=== PATIENT | male | born 1945 | race Caucasian/White ===

== ENCOUNTER 2016-09-25 18:06 | Inpatient (IN) | payer OTHER, MEDICARE ==
[2016-09-25] VITALS (12 sets, daily range): BP systolic 53–118; BP diastolic 33–82; PULSE 77–98; RESP 16–18; TEMP 97.8–98.2; O2SAT 98–100
[~2016-09-25] VITALS: Ht 182.9 cm; Wt 69.6 kg
[2016-09-25 18:35] LABS: AUTOMATED NEUTROPHIL # 4.6 TH/MM3 (1.8-7.7); BASOPHIL % 0.5 % (0.0-2.0); EOSINOPHIL # 0.1 TH/MM3 (0-0.4); EOSINOPHIL % 1.2 % (0.0-4.0); HEMATOCRIT 30.2 % (39.0-51.0); HEMO FLAGS DIFF FINAL; LYMPH % 14.9 % (9.0-44.0); LYMPHOCYTE # 0.9 TH/MM3 (1.0-4.8); MEAN CELL VOLUME 89.6 FL (80.0-100.0); MEAN CORPUSCULAR HGB CONC 33.5 % (32.0-36.0); NEUT % 77.4 % (16.0-70.0); PLATELET COUNT 165 TH/MM3 (150-450); RED BLOOD COUNT 3.37 MIL/MM3 (4.50-5.90)
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
[2016-09-25 18:44] LABS: APTT (PATIENT) 25.4 SEC (24.3-30.1); INTERNATIONAL NORMALIZED RATIO 1.1 RATIO; PROTHROMBIN TIME - PATIENT 12.2 SEC (9.8-11.6)
[2016-09-25 18:45] LABS: I-STAT POTASSIUM 4.2 MMOL/L (3.5-4.9)
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
[2016-09-25] MEDS ORDERED: IOHEXOL 350 MG/ML 10 ML VIAL (for RAD DIAG) IV ONE (18:46)
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
[2016-09-25] MEDS ORDERED: LIDOCAINE HCL 1% 30 ML VIAL INFIL ONE (20:15)
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
[2016-09-25] MEDS ORDERED: ONDANSETRON HCL 4 MG/2 ML VIAL IV PRN (20:30)
[2016-09-25] MEDS ORDERED: ACETAMINOPHEN/HYDROcodone 325 MG/5 MG TAB PO PRN (20:30)
[2016-09-25] MEDS ORDERED: MORPHINE SULFATE 4 MG/ML INJ IV PRN (20:30)
[2016-09-25] MEDS ORDERED: ENALAPRILAT 1.25 MG/ML VIAL IV PRN (20:30)
[2016-09-25] MEDS ORDERED: SODIUM CHLORIDE 0.9% FLUSH 10 ML FLUSH IV FLUSH PRN (20:30)
[2016-09-25] MEDS ORDERED: LIDOCAINE HCL 1% PF 30 ML VIAL ONE (20:32)
[2016-09-25] MEDS: ceFAZolin 2 GM PREMIX 50 ML IV SCH (21:00)
[2016-09-25] MEDS ORDERED: TOPIRAMATE 25 MG TAB PO SCH (21:00)
[2016-09-25] MEDS ORDERED: POLYETHYLENE GLYCOL 17 GM PKG PO SCH (21:00)
[2016-09-25] MEDS ORDERED: NALOXONE HCL 0.4 MG/ML AMP ONE (21:04)
[2016-09-25] MEDS: SODIUM CHLOR 0.9% 1000 ML INJ 1,000 ML IV SCH (21:30)
[2016-09-25 21:41] LABS: CREATINE KINASE 159 U/L (39-308)
[2016-09-25 21:53] LABS: CKMB 1.9 NG/ML (0.5-3.6)
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
[2016-09-25] MEDS: PANTOPRAZOLE SODIUM 40 MG VIAL IVP SCH (22:49)
[2016-09-25 23:07] LABS: APTT (PATIENT) 20.3 SEC (24.3-30.1)
[2016-09-26] VITALS (9 sets, daily range): BP systolic 101–125; BP diastolic 60–70; PULSE 68–80; RESP 14–24; TEMP 98.1–99.6; O2SAT 95–100
[2016-09-26] MEDS: ceFAZolin 2 GM PREMIX 50 ML IV SCH ×3 (01:45→22:30)
[2016-09-26] MEDS ORDERED: MULT1TAB46 (01:51)
[2016-09-26] MEDS ORDERED: ASPI81CH CHEW (01:51)
[2016-09-26] MEDS ORDERED: LISI10TA3 PO (01:51)
[2016-09-26] MEDS ORDERED: SAWCAP2 PO (01:51)
[2016-09-26 05:50] LABS: AUTOMATED NEUTROPHIL # 5.6 TH/MM3 (1.8-7.7); HEMATOCRIT 28.3 % (39.0-51.0); HEMO FLAGS DIFF FINAL; LYMPH % 7.2 % (9.0-44.0); LYMPHOCYTE # 0.5 TH/MM3 (1.0-4.8); MEAN CELL VOLUME 86.9 FL (80.0-100.0); MEAN CORPUSCULAR HEMOGLOBIN 30.3 PG (27.0-34.0); MEAN CORPUSCULAR HGB CONC 34.9 % (32.0-36.0); MONO % 8.2 % (0.0-8.0); NEUT % 84.6 % (16.0-70.0); PLATELET COUNT 124 TH/MM3 (150-450); RED BLOOD COUNT 3.26 MIL/MM3 (4.50-5.90); WHITE BLOOD COUNT 6.6 TH/MM3 (4.0-11.0)
[2016-09-26 06:18] LABS: BICARBONATE 24.1 MEQ/L (21.0-32.0); CALCIUM-PROTEIN CORRECTED 8.4 MG/DL (8.5-10.1); POTASSIUM 4.7 MEQ/L (3.5-5.1); TOTAL BILIRUBIN ADULT 0.6 MG/DL (0.2-1.0)
[2016-09-26] MEDS: SODIUM CHLOR 0.9% 1000 ML INJ 1,000 ML IV SCH ×2 (07:00→17:00)
[2016-09-26] MEDS ORDERED: LIDOCAINE HCL 5% PATCH T-DERMAL ONE (07:15)
[2016-09-26] MEDS: METHOCARBAMOL 500 MG TAB PO SCH ×3 (07:56→22:35)
[2016-09-26] MEDS: DOCUSATE SODIUM 100 MG CAP PO SCH ×2 (07:56→22:30)
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
[2016-09-26] MEDS: POVIDONE IODINE 10% SOLN 118 ML BOTTLE TOP SCH (21:00)
--- NOTE | 2016-09-26 21:20 | EKG ---
Date Performed: 09/25/2016 Time Performed: 21:58:26 PTAGE: 89 years EKG: Sinus rhythm NORMAL ECG NO PREVIOUS TRACING DOCTOR: Stewart Munroe Interpretating Date/Time 09/26/2016 21:18:16
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
[2016-09-26] MEDS: PANTOPRAZOLE SODIUM 40 MG VIAL IVP SCH (22:29)
[2016-09-26] MEDS: MAGNESIUM HYDROXIDE SUSP 30 ML CUP PO SCH (22:30)
[2016-09-26] MEDS: ACETAMINOPHEN/HYDROcodone 325 MG/5 MG TAB PO PRN (22:35)
[2016-09-27] VITALS: BP 101/67; PULSE 72; RESP 18; TEMP 97.7; O2SAT 96
[2016-09-27] MEDS: SODIUM CHLOR 0.9% 1000 ML INJ 1,000 ML IV SCH (03:00)
[2016-09-27] MEDS: ceFAZolin 2 GM PREMIX 50 ML IV SCH ×3 (05:57→20:33)
--- NOTE | 2016-09-27 06:37 | RADRPT ---
EXAM DATE/TIME: 09/27/2016 06:00 [place] COMPARISON: CHEST SINGLE AP, September 25, 2016, 21:46. INDICATIONS : Post trauma. MEDICAL HISTORY : Unobtainable. SURGICAL HISTORY : Unobtainable. ENCOUNTER: Subsequent ACUITY: 3 days PAIN SCORE: Non-responsive. LOCATION: Bilateral chest FINDINGS: Right central line in superior vena cava. Left basilar airspace disease slightly increased from September 08 8. Distal left clavicle fracture and multiple left rib fractures present. Right lung remains clear. N o significant effusion. No pneumothorax identified. CONCLUSION: 1. Left basilar airspace disease slightly increased from September 25. Right central line in superior vena cava. Ayad Altman MD on September 27, 2016 at 6:33 Board Certified Radiologist. This report was verified electronically.
[2016-09-27 06:49] LABS: AUTOMATED NEUTROPHIL # 3.7 TH/MM3 (1.8-7.7); BASOPHIL % 0.2 % (0.0-2.0); EOSINOPHIL % 0.8 % (0.0-4.0); HEMATOCRIT 25.2 % (39.0-51.0); HEMO FLAGS DIFF FINAL; LYMPH % 13.2 % (9.0-44.0); LYMPHOCYTE # 0.6 TH/MM3 (1.0-4.8); MEAN CELL VOLUME 88.3 FL (80.0-100.0); MEAN CORPUSCULAR HEMOGLOBIN 29.5 PG (27.0-34.0); MEAN CORPUSCULAR HGB CONC 33.5 % (32.0-36.0); MONO % 10.3 % (0.0-8.0); NEUT % 75.5 % (16.0-70.0); PLATELET COUNT 110 TH/MM3 (150-450); RED BLOOD COUNT 2.86 MIL/MM3 (4.50-5.90); RED CELL DISTRIBUTION WIDTH 13.6 % (11.6-17.2); WHITE BLOOD COUNT 4.9 TH/MM3 (4.0-11.0)
[2016-09-27 07:14] LABS: ALT (GPT) 21 U/L (12-78); ANION GAP 8 MEQ/L (5-15); AST (GOT) 40 U/L (15-37); BICARBONATE 24.8 MEQ/L (21.0-32.0); BLOOD UREA NITROGEN 10 MG/DL (7-18); CHLORIDE 108 MEQ/L (98-107); GLOMERULAR FILTRATION RATE 95 ML/MIN (>89); SODIUM (NA) 141 MEQ/L (136-145)
[2016-09-27 07:16] LABS: ALKALINE PHOSPHATASE 28 U/L (45-117); TOTAL BILIRUBIN ADULT 0.5 MG/DL (0.2-1.0)
[2016-09-27 08:00] VITALS: BP 142/84; PULSE 73; RESP 14; TEMP 97.9; O2SAT 97
[2016-09-27] MEDS: DOCUSATE SODIUM 100 MG CAP PO SCH ×2 (08:47→20:33)
[2016-09-27] MEDS: METHOCARBAMOL 500 MG TAB PO SCH ×2 (08:47→17:12)
[2016-09-27] MEDS: POVIDONE IODINE 10% SOLN 118 ML BOTTLE TOP SCH ×2 (08:47→20:34)
[2016-09-27] MEDS: LACTULOSE SYRUP 20 GM/30 ML CUP PO SCH (08:49)
[2016-09-27] MEDS: ACETAMINOPHEN/HYDROcodone 325 MG/5 MG TAB PO PRN (09:01)
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
[2016-09-27 12:00] VITALS: BP 125/77; PULSE 71; RESP 17; TEMP 96.2; O2SAT 97
[2016-09-27 16:00] VITALS: BP 124/73; PULSE 73; RESP 18; TEMP 97; O2SAT 96
[2016-09-27 20:00] VITALS: BP 171/80; PULSE 79; RESP 20; TEMP 99; O2SAT 95
[2016-09-27] MEDS: MAGNESIUM HYDROXIDE SUSP 30 ML CUP PO SCH (20:33)
[2016-09-27 22:00] VITALS: BP 129/72; PULSE 78; RESP 20; TEMP 98.6; O2SAT 98
[2016-09-28] VITALS: BP 126/77; PULSE 78; RESP 20; TEMP 98.6; O2SAT 98
[2016-09-28] MEDS: METHOCARBAMOL 500 MG TAB PO SCH ×3 (01:00→15:31)
[2016-09-28] MEDS: ceFAZolin 2 GM PREMIX 50 ML IV SCH ×3 (06:11→21:42)
[2016-09-28] MEDS: DOCUSATE SODIUM 100 MG CAP PO SCH ×2 (07:41→21:42)
[2016-09-28] MEDS: POVIDONE IODINE 10% SOLN 118 ML BOTTLE TOP SCH ×2 (07:41→21:00)
[2016-09-28] MEDS: LACTULOSE SYRUP 20 GM/30 ML CUP PO SCH (07:41)
[2016-09-28] MEDS ORDERED: BUPIVACAINE/EPINEPHRINE 0.25% 50 ML VIAL ONE (07:52)
[2016-09-28 08:00] VITALS: BP 139/83; PULSE 81; RESP 18; TEMP 97.9; O2SAT 96
[2016-09-28] MEDS ORDERED: POVIDONE IODINE 10% OINT 30 GM TUBE ONE (09:18)
[2016-09-28] MEDS ORDERED: DO NOT ADM ANY ANTICOAGULANT DRUGS PRN (10:01)
[2016-09-28] MEDS ORDERED: fentaNYL CITRATE 250 MCG/5 ML AMP ONE (10:06)
--- NOTE | 2016-09-28 10:11 | HHI.PR ---
Immediate Post Op Note Procedure Date: September 28, 2016 Pre Op Diagnosis: (1) Scalp avulsion Post Op Diagnosis: (1) Scalp avulsion Surgeon: Grecia Rivera Wood Carver(s): None. Procedure: 1. Excisional debridement of scalp wound including skin and subcutaneous tissue and muscular layer. 2. Closure of 35 cm scalp wound with rotation flap. Estimated blood loss: 30 ml Anesthesia: General Drains: Maryjo Patient to: PACU Patient Condition: Good Date/Time of Procedure: SEE SURGICAL CARE RECORD Grecia Rivera MD September 28, 2016 10:11
[2016-09-28 12:00] VITALS: BP 115/67; PULSE 75; RESP 16; TEMP 97.5; O2SAT 94
[2016-09-28] MEDS ORDERED: BISACODYL EC 5 MG TABEC PO ONE (12:00)
[2016-09-28] MEDS ORDERED: ONDANSETRON HCL 4 MG/2 ML VIAL IV PUSH ONE (12:00)
[2016-09-28] MEDS ORDERED: PROPOFOL 200 MG/20 ML AMP IV ONE (12:00)
[2016-09-28] MEDS ORDERED: LACTATED RINGER'S 1000 ML INJ 1,000 ML IV ONE (12:00)
[2016-09-28] MEDS ORDERED: PHENYLEPH/NS 1000 MCG/10 ML SYR IV ONE (12:00)
[2016-09-28] MEDS ORDERED: BISACODYL 10 MG SUPP RECTAL ONE (12:00)
[2016-09-28] MEDS ORDERED: ePHEDrine/NS 25 MG/5 ML SYR IV ONE (12:00)
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
[2016-09-28] MEDS ORDERED: MORPHINE SULFATE 4 MG/ML INJ IV PRN (13:45)
[2016-09-28] MEDS: REMOVE OLD LIDOCAINE PATCH T-DERMAL SCH (14:00)
[2016-09-28] MEDS: LIDOCAINE HCL 5% PATCH T-DERMAL SCH (15:31)
[2016-09-28 16:00] VITALS: BP 124/91; PULSE 86; RESP 18; TEMP 96.3; O2SAT 92
[2016-09-28 20:00] VITALS: BP 134/92; PULSE 99; RESP 20; TEMP 99.3; O2SAT 97
[2016-09-28] MEDS: FAMOTIDINE 20 MG TAB PO SCH (21:42)
[2016-09-28] MEDS: MAGNESIUM HYDROXIDE SUSP 30 ML CUP PO SCH (21:42)
[2016-09-29] VITALS: BP 149/80; PULSE 85; RESP 20; TEMP 98.7; O2SAT 95
[2016-09-29] MEDS: METHOCARBAMOL 500 MG TAB PO SCH ×3 (00:06→16:00)
[2016-09-29] MEDS: ceFAZolin 2 GM PREMIX 50 ML IV SCH ×3 (04:09→21:26)
[2016-09-29 06:09] LABS: AUTOMATED NEUTROPHIL # 2.8 TH/MM3 (1.8-7.7); BASOPHIL % 0.4 % (0.0-2.0); EOSINOPHIL # 0.1 TH/MM3 (0-0.4); EOSINOPHIL % 2.1 % (0.0-4.0); HEMATOCRIT 23.2 % (39.0-51.0); HEMO FLAGS DIFF FINAL; LYMPH % 15.2 % (9.0-44.0); LYMPHOCYTE # 0.6 TH/MM3 (1.0-4.8); MEAN CORPUSCULAR HEMOGLOBIN 30.1 PG (27.0-34.0); MEAN CORPUSCULAR HGB CONC 34.2 % (32.0-36.0); MONO % 9.5 % (0.0-8.0); NEUT % 72.8 % (16.0-70.0); PLATELET COUNT 113 TH/MM3 (150-450); RED BLOOD COUNT 2.64 MIL/MM3 (4.50-5.90); RED CELL DISTRIBUTION WIDTH 13.3 % (11.6-17.2); WHITE BLOOD COUNT 3.9 TH/MM3 (4.0-11.0)
[2016-09-29 06:41] LABS: ALT (GPT) 16 U/L (12-78); ANION GAP 8 MEQ/L (5-15); AST (GOT) 39 U/L (15-37); BICARBONATE 27.5 MEQ/L (21.0-32.0); BLOOD UREA NITROGEN 10 MG/DL (7-18); CHLORIDE 106 MEQ/L (98-107); GLOMERULAR FILTRATION RATE 111 ML/MIN (>89); POTASSIUM 3.9 MEQ/L (3.5-5.1); SODIUM (NA) 141 MEQ/L (136-145)
[2016-09-29 06:43] LABS: ALKALINE PHOSPHATASE 29 U/L (45-117); TOTAL BILIRUBIN ADULT 0.7 MG/DL (0.2-1.0)
[2016-09-29 08:00] VITALS: BP 138/84; PULSE 84; RESP 16; TEMP 97.4; O2SAT 96
[2016-09-29] MEDS ORDERED: BISACODYL EC 5 MG TABEC PO ONE (08:00)
[2016-09-29] MEDS ORDERED: BISACODYL 10 MG SUPP RECTAL ONE (08:00)
[2016-09-29 08:09] VITALS: O2SAT 95
[2016-09-29] MEDS: LACTULOSE SYRUP 20 GM/30 ML CUP PO SCH (08:18)
[2016-09-29] MEDS: DOCUSATE SODIUM 100 MG CAP PO SCH ×2 (08:18→21:25)
[2016-09-29] MEDS: LIDOCAINE HCL 5% PATCH T-DERMAL SCH (08:18)
[2016-09-29] MEDS: FAMOTIDINE 20 MG TAB PO SCH ×2 (08:18→21:25)
[2016-09-29] MEDS: POVIDONE IODINE 10% SOLN 118 ML BOTTLE TOP SCH ×2 (08:24→21:00)
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
[2016-09-29 12:00] VITALS: BP 135/82; PULSE 81; RESP 17; TEMP 96.8; O2SAT 99
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
[2016-09-29] MEDS: REMOVE OLD LIDOCAINE PATCH T-DERMAL SCH (13:48)
[2016-09-29 16:00] VITALS: BP 124/81; PULSE 72; RESP 17; TEMP 97.9; O2SAT 99
[2016-09-29 20:00] VITALS: BP 129/89; PULSE 81; RESP 24; TEMP 99.3; O2SAT 96
[2016-09-29] MEDS: MAGNESIUM HYDROXIDE SUSP 30 ML CUP PO SCH (21:26)
[2016-09-30] VITALS: BP 137/81; PULSE 78; RESP 24; TEMP 98.7; O2SAT 95
[2016-09-30 05:22] LABS: AUTOMATED NEUTROPHIL # 2.3 TH/MM3 (1.8-7.7); BASOPHIL % 0.5 % (0.0-2.0); EOSINOPHIL # 0.2 TH/MM3 (0-0.4); EOSINOPHIL % 4.4 % (0.0-4.0); HEMATOCRIT 22.4 % (39.0-51.0); HEMO FLAGS DIFF FINAL; LYMPH % 16.3 % (9.0-44.0); LYMPHOCYTE # 0.6 TH/MM3 (1.0-4.8); MEAN CELL VOLUME 87.8 FL (80.0-100.0); MEAN CORPUSCULAR HGB CONC 35.3 % (32.0-36.0); MONO % 11.4 % (0.0-8.0); NEUT % 67.4 % (16.0-70.0); PLATELET COUNT 155 TH/MM3 (150-450); RED BLOOD COUNT 2.55 MIL/MM3 (4.50-5.90); RED CELL DISTRIBUTION WIDTH 13.2 % (11.6-17.2); WHITE BLOOD COUNT 3.4 TH/MM3 (4.0-11.0)
[2016-09-30 05:37] LABS: ALT (GPT) 18 U/L (12-78); ANION GAP 8 MEQ/L (5-15); AST (GOT) 36 U/L (15-37); BICARBONATE 28.3 MEQ/L (21.0-32.0); BLOOD UREA NITROGEN 12 MG/DL (7-18); CHLORIDE 108 MEQ/L (98-107); GLOMERULAR FILTRATION RATE 104 ML/MIN (>89); POTASSIUM 3.9 MEQ/L (3.5-5.1); SODIUM (NA) 144 MEQ/L (136-145)
[2016-09-30 05:39] LABS: ALKALINE PHOSPHATASE 31 U/L (45-117); TOTAL BILIRUBIN ADULT 1.1 MG/DL (0.2-1.0)
[2016-09-30] MEDS: ceFAZolin 2 GM PREMIX 50 ML IV SCH ×3 (06:04→21:59)
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
[2016-09-30 08:00] VITALS: BP 119/81; PULSE 71; RESP 16; TEMP 96.9; O2SAT 96
[2016-09-30] MEDS ORDERED: DOCU1CAP39 PO (08:44)
[2016-09-30] MEDS ORDERED: MILKSUS PO (08:44)
[2016-09-30] MEDS: POVIDONE IODINE 10% OINT 30 GM TUBE TOPICAL SCH (09:00)
[2016-09-30] MEDS: POVIDONE IODINE 10% SOLN 118 ML BOTTLE TOP SCH ×2 (09:00→21:00)
[2016-09-30] MEDS: DOCUSATE SODIUM 100 MG CAP PO SCH ×2 (09:45→22:04)
[2016-09-30] MEDS: METHOCARBAMOL 500 MG TAB PO SCH ×4 (09:45→23:45)
[2016-09-30] MEDS: LACTULOSE SYRUP 20 GM/30 ML CUP PO SCH (09:46)
[2016-09-30] MEDS: FAMOTIDINE 20 MG TAB PO SCH ×2 (09:46→22:04)
[2016-09-30] MEDS: LIDOCAINE HCL 5% PATCH T-DERMAL SCH (09:47)
[2016-09-30] MEDS ORDERED: MAGNESIUM CITRATE SOLN 300 ML BTL PO ONE (10:00)
[2016-09-30] MEDS: ACETAMINOPHEN/HYDROcodone 325 MG/5 MG TAB PO PRN ×2 (11:50→23:46)
[2016-09-30 12:00] VITALS: BP 138/92; PULSE 75; RESP 16; TEMP 97.7; O2SAT 96
[2016-09-30] MEDS: REMOVE OLD LIDOCAINE PATCH T-DERMAL SCH (14:00)
--- NOTE | 2016-09-30 14:18 | HHI.PR ---
Subjective Subjective Notes Complaints of back pain Has been refusing pain medication. Told to cough and states "Oh no, I can't do that. It hurts" Objective Vitals/I&O Vital Signs Date Time Temp Pulse Resp B/P Pulse Ox O2 Delivery O2 Flow Rate FiO2 09/30/16 12:00 97.7 75 16 138/92 96 09/29/16 08:09 21 09/28/16 10:45 Room Air Labs Laboratory Tests Test 09/30/16 04:15 White Blood Count 3.4 Red Blood Count 2.55 Hemoglobin 7.9 Hematocrit 22.4 Mean Corpuscular Volume 87.8 Mean Corpuscular Hemoglobin 31.0 Mean Corpuscular Hemoglobin 35.3 Concent Red Cell Distribution Width 13.2 Platelet Count 155 Mean Platelet Volume 6.9 Neutrophils (%) (Auto) 67.4 Lymphocytes (%) (Auto) 16.3 Monocytes (%) (Auto) 11.4 Eosinophils (%) (Auto) 4.4 Basophils (%) (Auto) 0.5 Neutrophils # (Auto) 2.3 Lymphocytes # (Auto) 0.6 Monocytes # (Auto) 0.4 Eosinophils # (Auto) 0.2 Basophils # (Auto) 0.0 CBC Comment DIFF FINAL Differential Comment Sodium Level 144 Potassium Level 3.9 Chloride Level 108 Carbon Dioxide Level 28.3 Anion Gap 8 Blood Urea Nitrogen 12 Creatinine 0.74 Estimat Glomerular Filtration 104 Rate Random Glucose 100 Calcium Level 8.0 Total Bilirubin 1.1 Aspartate Amino Transf 36 (AST/SGOT) Alanine Aminotransferase 18 (ALT/SGPT) Alkaline Phosphatase 31 Total Protein 5.2 Albumin 2.4 Radiology Last Impressions Chest X-Ray 09/27/16 0600 Signed Impressions: Service Date/Time: Tuesday, September 27, 2016 06:00 - CONCLUSION: 1. Left basilar airspace disease slightly increased from September 25. Right central line in superior vena cava. Ayad Altman MD Maxillofacial CT 09/25/161823 Signed Impressions: Service Date/Time: September 18:29 - CONCLUSION: Negative CT scan of the facial bones for a facial bone fracture. Thomas Crawford MD FACR Head CT 09/25/161823 Signed Impressions: Service Date/Time: September 18:26 - CONCLUSION: Laceration left occiput otherwise negative. Thomas Crawford MD FACR Chest CT 09/25/161823 Signed Impressions: Service Date/Time: September 18:34 - CONCLUSION: 1. Multiple rib fractures on the left. 2. Fracture of the left clavicle. 3. Fracture across the anterior lip of the glenoid. 4. Thoracic spine is intact. 5. Mediastinum is intact. Thomas Crawford MD FACR Cervical Spine CT 09/25/161823 Signed Impressions: Service Date/Time: , September 25, 2016 18:28 - CONCLUSION: 1. Extensive degenerative changes in the cervical spine. 2. Fractures of the right first rib. Thomas Crawford MD FACR Abdomen/Pelvis CT 09/25/161823 Signed Impressions: Service Date/Time: , September 25, 2016 18:32 - CONCLUSION: Contusion anterior abdominal wall right upper quadrant. Thomas Crawford MD FACR Shoulder X-Ray 09/25/16 0000 Signed Impressions: Service Date/Time: September 19:05 - CONCLUSION: Fracture left clavivle Thomas Crawford MD FACR Pelvis X-Ray 09/25/16 0000 Signed Impressions: Service Date/Time: September 18:20 - CONCLUSION: Negative for fracture. Thomas Crawford MD FACR Narrative Exam GENERAL: 71-year-old well-nourished, well developed male sitting up in bed. SKIN: Warm and dry. HEAD:. Normocephalic. Dry bulky dressing wrapped around head. ENT: No nasal bleeding or discharge. Mucous membranes pink and moist. NECK: Trachea midline. No JVD. CARDIOVASCULAR: Regular rate and rhythm. RESPIRATORY: No accessory muscle use. Lungs clear to auscultation. Breath sounds equal bilaterally. GASTROINTESTINAL: Abdomen soft, non-tender, nondistended. + BS. MUSCULOSKELETAL: Extremities without cyanosis, or edema. Left arm in sling. + pulses 4 extremities, MAEW. NEUROLOGICAL: Awake and alert. Normal speech. A/P Problem List: (1) Hypotension (2) Multiple rib fractures involving first rib (3) Nondisplaced fracture of lateral end of clavicle (4) Closed fracture of glenoid process of left scapula (5) Closed left clavicular fracture (6) Glenoid fracture of shoulder Assessment and Plan INJURIES: Scalp avulsion RIGHT ear laceration (in ED) LEFT clavicle fx (non-op) LEFT rib fxs (2, 4, 5, 6, 8, 9, 10) RIGHT upper quadrant abdominal contusion 09/28: Debridement and rotational closure of scalp wound. Diet: Heart healthy Pulm: IS, acapella, EZpap. Pain: Alice. Morphine. Robaxin. Lidoderm patch Activity: OOB. PT and OT evaluating, recommending rehabilitation. (NWB [facility]) GI: Pepcid Bowel: Colace. MOM. Lactulose. Mag citrate x1. No BM yet DVT: SCD's. - Scalp avulsion Plastic surgery cleared patient for discharge. F/U as outpatient IV Ancef complete Hgb stable CINDY drain removed by plastics. 09/28: Debridement and partial closure of scalp wound Wound care per plastics: Dressing changes every other day. Apply povidone iodine ointment, Telfa or ABD pad, and dry wrap. - RIGHT ear laceration Sutured in ED Remove sutures, keep open to air - Left clavicle fracture Orthopedics cleared for discharge. Follow-up in 3 weeks. Nonoperative management Left upper extremity sling, NWB PT and OT evaluating- Recommend rehab placement - 7 Left rib fractures Pulmonary toileting CXR today shows LLL infiltrate vs atelectasis. Educated about the importance of pulmonary toilet and pain control. Patient agreeable to take more pain medications so he can cough and deep breathe. On room air, no distress Afebrile, WBC 3.4 Encourage OOB Pain control Plan of care discussed with patient and RN at bedside. Case management consulted to assist with discharge planning. Patient's family was looking at SNF's to determine which one the patient should go to. Authorization has been requested for [facility]. Problem Qualifiers (1) Hypotension: Qualified Code: I95.9 - Hypotension, unspecified hypotension type (2) Closed left clavicular fracture: Qualified Code: S42.002A - Closed displaced fracture of left clavicle, unspecified part of clavicle, initial encounter (3) Glenoid fracture of shoulder: Qualified Code: S42.142A - Glenoid fracture of shoulder, left, closed, initial encounter Juan José Barahona [facility] September 30, 2016 14:18
[2016-09-30 16:00] VITALS: BP 129/85; PULSE 73; RESP 18; TEMP 97.4; O2SAT 96
[2016-09-30 20:00] VITALS: BP 117/77; PULSE 71; RESP 22; TEMP 97.5; O2SAT 95
[2016-09-30] MEDS: MAGNESIUM HYDROXIDE SUSP 30 ML CUP PO SCH (22:04)
[2016-10-01] VITALS (7 sets, daily range): BP systolic 108–164; BP diastolic 71–93; PULSE 65–79; RESP 16–22; TEMP 97–98.6; O2SAT 93–99
[2016-10-01] MEDS: ceFAZolin 2 GM PREMIX 50 ML IV SCH (05:00)
--- NOTE | 2016-10-01 06:49 | RADRPT ---
EXAM DATE/TIME: 10/01/2016 06:07 [facility] COMPARISON: CHEST SINGLE AP, September 30, 2016, 5:37. INDICATIONS : Atelectasis. MEDICAL HISTORY : Shoulder & clavlice fracture, left. SURGICAL HISTORY : None. ENCOUNTER: Subsequent ACUITY: 1 week PAIN SCORE: 0/10 LOCATION: Left chest FINDINGS: There is worsening left basilar opacity probably combination of consolidation and pleural effusion. F ractures are again seen. There appears to be a skin fold overlapping the left hemithorax without defi nite pneumothorax. The rest of the examination has not significantly changed. CONCLUSION: Worsening left lung base opacity probably worsening pleural effusion and consolidation. Stewart Montero MD on October 01, 2016 at 6:48 Board Certified Radiologist. This report was verified electronically.
[2016-10-01] MEDS: ACETAMINOPHEN/HYDROcodone 325 MG/5 MG TAB PO PRN ×2 (07:55→23:28)
[2016-10-01] MEDS: DOCUSATE SODIUM 100 MG CAP PO SCH ×2 (07:56→21:12)
[2016-10-01] MEDS: LIDOCAINE HCL 5% PATCH T-DERMAL SCH (07:56)
[2016-10-01] MEDS: FAMOTIDINE 20 MG TAB PO SCH ×2 (07:56→21:12)
[2016-10-01] MEDS: METHOCARBAMOL 500 MG TAB PO SCH ×3 (07:56→23:28)
[2016-10-01] MEDS: LACTULOSE SYRUP 20 GM/30 ML CUP PO SCH (07:56)
[2016-10-01] MEDS: POVIDONE IODINE 10% SOLN 118 ML BOTTLE TOP SCH ×2 (09:00→21:00)
[2016-10-01] MEDS: POVIDONE IODINE 10% OINT 30 GM TUBE TOPICAL SCH (09:00)
--- NOTE | 2016-10-01 11:02 | RADRPT ---
EXAM DATE/TIME: 10/01/2016 10:43 [facility] COMPARISON: CT THORAX W CONTRAST, September 25, 2016, 18:34. CHEST SINGLE AP, October 01, 2016, 6:07. INDICATIONS : Abnormal chest xray RADIATION DOSE: 6.41 CTDIvol (mGy) MEDICAL HISTORY : Cardiovascular disease. Hypertension. SURGICAL HISTORY : None. ENCOUNTER: Initial ACUITY: 1 day PAIN SCALE: 2/10 LOCATION: chest TECHNIQUE: Volumetric scanning of the chest was performed. Using automated exposure control and adjustment of t he mA and/or kV according to patient size, radiation dose was kept as low as reasonably achievable to obtain optimal diagnostic quality images. FINDINGS: There is a small right-sided pleural effusion. On axial image 55 in the right posterior costophr enic angle a 7.5 mm noncalcified nodular focus is present, this is not present a few days ago and lik gayle represents minimal atelectasis. Since the previous study there has been interval development of a large left-sided pleural effusion, and there is associated left lower lobe passive atelectasis. Ther e are atherosclerotic calcifications of the aorta. The adrenal glands are normal. There are no perica rdial effusions. No adenopathy. Coronary artery calcification is present. Osseous structures demonstr ate a comminuted left distal clavicular fracture, left 11th, 10th, ninth, eighth, seventh, sixth, fif th, fourth, third rib fractures as well as a fracture off the anterior inferior glenoid rim. CONCLUSION: 1. Interval development of a large left effusion. 2. Small right pleural effusion. 3. Multiple fractures are noted as above. 4. Atherosclerosis. Cisco Kaminski MD on October 01, 2016 at 10:57 Board Certified Radiologist. This report was verified electronically.
--- NOTE | 2016-10-01 12:34 | HHI.PR ---
Subjective Subjective Notes Denies SOB Feels better, states he is trying not to take pain medication today Objective Vitals/I&O Vital Signs Date Time Temp Pulse Resp B/P Pulse Ox O2 Delivery O2 Flow Rate FiO2 10/01/16 12:00 98.2 77 18 148/88 94 09/29/16 08:09 21 09/28/16 10:45 Room Air Labs Laboratory Tests Test 09/25/16 09/27/16 09/30/16 21:04 06:12 04:15 Blood Type A POSITIVE Crossmatch Leukocyte-Reduced Red Blood Cells Blood Bank Comment Magnesium Level 2.0 MG/DL White Blood Count 3.4 TH/MM3 Red Blood Count 2.55 MIL/MM3 Hemoglobin 7.9 GM/DL Hematocrit 22.4 % Mean Corpuscular Volume 87.8 FL Mean Corpuscular Hemoglobin 31.0 PG Mean Corpuscular Hemoglobin 35.3 % Concent Red Cell Distribution Width 13.2 % Platelet Count 155 TH/MM3 Mean Platelet Volume 6.9 FL Neutrophils (%) (Auto) 67.4 % Lymphocytes (%) (Auto) 16.3 % Monocytes (%) (Auto) 11.4 % Eosinophils (%) (Auto) 4.4 % Basophils (%) (Auto) 0.5 % Neutrophils # (Auto) 2.3 TH/MM3 Lymphocytes # (Auto) 0.6 TH/MM3 Monocytes # (Auto) 0.4 TH/MM3 Eosinophils # (Auto) 0.2 TH/MM3 Basophils # (Auto) 0.0 TH/MM3 CBC Comment DIFF FINAL Differential Comment Sodium Level 144 MEQ/L Potassium Level 3.9 MEQ/L Chloride Level 108 MEQ/L Carbon Dioxide Level 28.3 MEQ/L Anion Gap 8 MEQ/L Blood Urea Nitrogen 12 MG/DL Creatinine 0.74 MG/DL Estimat Glomerular Filtration 104 ML/MIN Rate Random Glucose 100 MG/DL Calcium Level 8.0 MG/DL Total Bilirubin 1.1 MG/DL Aspartate Amino Transf 36 U/L (AST/SGOT) Alanine Aminotransferase 18 U/L (ALT/SGPT) Alkaline Phosphatase 31 U/L Total Protein 5.2 GM/DL Albumin 2.4 GM/DL Radiology Last Impressions Chest X-Ray 09/27/16 0600 Signed Impressions: Service Date/Time: Tuesday, September 27, 2016 06:00 - CONCLUSION: 1. Left basilar airspace disease slightly increased from September 25. Right central line in superior vena cava. Ayad Altman MD Maxillofacial CT 09/25/161823 Signed Impressions: Service Date/Time: September 18:29 - CONCLUSION: Negative CT scan of the facial bones for a facial bone fracture. Thomas Crawford MD FACR Head CT 09/25/161823 Signed Impressions: Service Date/Time: September 18:26 - CONCLUSION: Laceration left occiput otherwise negative. Thomas Crawford MD FACR Chest CT 09/25/161823 Signed Impressions: Service Date/Time: , September 25, 2016 18:34 - CONCLUSION: 1. Multiple rib fractures on the left. 2. Fracture of the left clavicle. 3. Fracture across the anterior lip of the glenoid. 4. Thoracic spine is intact. 5. Mediastinum is intact. Thomas Crawford MD FACR Cervical Spine CT 09/25/161823 Signed Impressions: Service Date/Time: September 18:28 - CONCLUSION: 1. Extensive degenerative changes in the cervical spine. 2. Fractures of the right first rib. Thomas Crawford MD FACR Abdomen/Pelvis CT 09/25/161823 Signed Impressions: Service Date/Time: September 18:32 - CONCLUSION: Contusion anterior abdominal wall right upper quadrant. Thomas Crawford MD FACR Shoulder X-Ray 09/25/16 0000 Signed Impressions: Service Date/Time: September 19:05 - CONCLUSION: Fracture left clavivle Thomas Crawford MD FACR Pelvis X-Ray 09/25/16 0000 Signed Impressions: Service Date/Time: September 18:20 - CONCLUSION: Negative for fracture. Thomas Crawford MD FACR Narrative Exam GENERAL: 71-year-old well-nourished, well developed male sitting up in bed. SKIN: Warm and dry. HEAD:. Normocephalic. Dry bulky dressing wrapped around head. ENT: No nasal bleeding or discharge. Mucous membranes pink and moist. NECK: Trachea midline. No JVD. CARDIOVASCULAR: Regular rate and rhythm. RESPIRATORY: No accessory muscle use. Lungs clear and diminished to auscultation. GASTROINTESTINAL: Abdomen soft, non-tender, nondistended. + BS. MUSCULOSKELETAL: Extremities without cyanosis, or edema. Left arm in sling. + pulses 4 extremities, MAEW. NEUROLOGICAL: Awake and alert. Normal speech. A/P Problem List: (1) Hypotension (2) Multiple rib fractures involving first rib (3) Nondisplaced fracture of lateral end of clavicle (4) Closed fracture of glenoid process of left scapula (5) Closed left clavicular fracture (6) Glenoid fracture of shoulder Assessment and Plan INJURIES: Scalp avulsion RIGHT ear laceration (in ED) LEFT clavicle fx (non-op) LEFT rib fxs (2, 4, 5, 6, 8, 9, 10) RIGHT upper quadrant abdominal contusion 09/28: Debridement and rotational closure of scalp wound. Diet: Heart healthy, tolerating Pulm: IS, acapella, EZpap. Encourage patient use Pain: Rupert. Morphine. Robaxin. Lidoderm patch Activity: OOB. PT and OT evaluating, recommending rehabilitation. (NWB [facility]IM[facility]) GI: Pepcid Bowel: Colace. MOM. Lactulose. LBM 10/01 DVT: SCD's. - Scalp avulsion Plastic surgery cleared patient for discharge. F/U as outpatient IV Ancef complete Hgb stable CINDY drain removed by plastics. 09/28: Debridement and partial closure of scalp wound Wound care per plastics: Dressing changes every other day. Apply povidone iodine ointment, Telfa or ABD pad, and dry wrap. - RIGHT ear laceration Sutured in ED Sutures removed, keep open to air - Left clavicle fracture Orthopedics cleared for discharge. Follow-up in 3 weeks. Nonoperative management Left upper extremity sling, NWB PT and OT evaluating- Recommend rehab placement - 7 Left rib fractures Pulmonary toileting CXR today shows LLL infiltrate vs pleural effusion. CT chest/thorax obtained. CT chest shows large hemothorax- Patient to get CT guided CT placed today. May need VATS. Hgb 7.9, transfuse 1 PRBC today Reeducated patient and his son about the importance of pulmonary toilet and pain control. On room air, no distress Afebrile Encourage OOB Pain control Plan of care discussed with patient and son at bedside. Case management consulted to assist with discharge planning. Patient's family was looking at SNF's to determine which one the patient should go to. Authorization has been requested for [facility]. Problem Qualifiers (1) Hypotension: Qualified Code: I95.9 - Hypotension, unspecified hypotension type (2) Closed left clavicular fracture: Qualified Code: S42.002A - Closed displaced fracture of left clavicle, unspecified part of clavicle, initial encounter (3) Glenoid fracture of shoulder: Qualified Code: S42.142A - Glenoid fracture of shoulder, left, closed, initial encounter Juan José Barahona [facility] October 01, 2016 12:34
[2016-10-01] MEDS ORDERED: SODIUM CHLOR 0.9% 250 ML INJ 250 ML IV ONE (12:45)
[2016-10-01] MEDS: REMOVE OLD LIDOCAINE PATCH T-DERMAL SCH (14:00)
[2016-10-01] MEDS: MAGNESIUM HYDROXIDE SUSP 30 ML CUP PO SCH (21:12)
[2016-10-02] VITALS (7 sets, daily range): BP systolic 132–191; BP diastolic 76–100; PULSE 63–81; RESP 17–20; TEMP 96.8–98.1; O2SAT 95–97
[2016-10-02 05:42] LABS: BASOPHIL % 1.1 % (0.0-2.0); EOSINOPHIL # 0.2 TH/MM3 (0-0.4); EOSINOPHIL % 3.4 % (0.0-4.0); HEMATOCRIT 24.4 % (39.0-51.0); HEMO FLAGS DIFF FINAL; LYMPH % 17.9 % (9.0-44.0); LYMPHOCYTE # 0.8 TH/MM3 (1.0-4.8); MEAN CELL VOLUME 88.4 FL (80.0-100.0); MEAN CORPUSCULAR HEMOGLOBIN 30.4 PG (27.0-34.0); MEAN CORPUSCULAR HGB CONC 34.4 % (32.0-36.0); MONO % 11.4 % (0.0-8.0); NEUT % 66.2 % (16.0-70.0); PLATELET COUNT 177 TH/MM3 (150-450); RED BLOOD COUNT 2.76 MIL/MM3 (4.50-5.90); RED CELL DISTRIBUTION WIDTH 14.1 % (11.6-17.2); WHITE BLOOD COUNT 4.6 TH/MM3 (4.0-11.0)
[2016-10-02 06:05] LABS: POTASSIUM 4.5 MEQ/L (3.5-5.1)
[2016-10-02] MEDS: LACTULOSE SYRUP 20 GM/30 ML CUP PO SCH (08:30)
[2016-10-02] MEDS: FAMOTIDINE 20 MG TAB PO SCH ×2 (08:30→21:17)
[2016-10-02] MEDS: METHOCARBAMOL 500 MG TAB PO SCH ×3 (08:32→23:17)
[2016-10-02] MEDS: DOCUSATE SODIUM 100 MG CAP PO SCH ×2 (08:32→21:00)
[2016-10-02] MEDS: ACETAMINOPHEN/HYDROcodone 325 MG/5 MG TAB PO PRN ×2 (08:32→21:17)
[2016-10-02] MEDS: LIDOCAINE HCL 5% PATCH T-DERMAL SCH (08:32)
[2016-10-02] MEDS: POVIDONE IODINE 10% OINT 30 GM TUBE TOPICAL SCH (08:33)
[2016-10-02] MEDS: BACITRACIN TOP OINT 15 GM TUBE TOPICAL SCH ×2 (09:00→21:19)
[2016-10-02] MEDS: POVIDONE IODINE 10% SOLN 118 ML BOTTLE TOP SCH ×2 (09:00→21:00)
--- NOTE | 2016-10-02 12:37 | HHI.PR ---
Subjective Subjective Notes No complaints, pain controlled Awaiting radiologist to place a CT-guided chest tube for hemothorax Objective Vitals/I&O Vital Signs Date Time Temp Pulse Resp B/P Pulse Ox O2 Delivery O2 Flow Rate FiO2 10/02/16 12:00 96.8 71 17 141/85 96 09/29/16 08:09 21 09/28/16 10:45 Room Air Labs Laboratory Tests Test 10/01/16 10/02/16 14:01 03:40 Blood Type A POSITIVE Antibody Screen NEGATIVE Crossmatch Leukocyte-Reduced Red Blood Cells Blood Bank Comment White Blood Count 4.6 Red Blood Count 2.76 Hemoglobin 8.4 Hematocrit 24.4 Mean Corpuscular Volume 88.4 Mean Corpuscular Hemoglobin 30.4 Mean Corpuscular Hemoglobin 34.4 Concent Red Cell Distribution Width 14.1 Platelet Count 177 Mean Platelet Volume 6.7 Neutrophils (%) (Auto) 66.2 Lymphocytes (%) (Auto) 17.9 Monocytes (%) (Auto) 11.4 Eosinophils (%) (Auto) 3.4 Basophils (%) (Auto) 1.1 Neutrophils # (Auto) 3.0 Lymphocytes # (Auto) 0.8 Monocytes # (Auto) 0.5 Eosinophils # (Auto) 0.2 Basophils # (Auto) 0.0 CBC Comment DIFF FINAL Differential Comment Sodium Level 142 Potassium Level 4.5 Chloride Level 107 Carbon Dioxide Level 28.0 Anion Gap 7 Blood Urea Nitrogen 14 Creatinine 0.81 Estimat Glomerular Filtration 94 Rate Random Glucose 89 Calcium Level 8.4 Radiology Last Impressions Chest X-Ray 09/27/16 0600 Signed Impressions: Service Date/Time: Tuesday, September 27, 2016 06:00 - CONCLUSION: 1. Left basilar airspace disease slightly increased from September 25. Right central line in superior vena cava. Ayad Altman MD Maxillofacial CT 09/25/161823 Signed Impressions: Service Date/Time: September 18:29 - CONCLUSION: Negative CT scan of the facial bones for a facial bone fracture. Thomas Crawford MD FACR Head CT 09/25/161823 Signed Impressions: Service Date/Time: September 18:26 - CONCLUSION: Laceration left occiput otherwise negative. Thomas Crawford MD FACR Chest CT 5/18/17 1824 Signed Impressions: Service Date/Time: September 18:34 - CONCLUSION: 1. Multiple rib fractures on the left. 2. Fracture of the left clavicle. 3. Fracture across the anterior lip of the glenoid. 4. Thoracic spine is intact. 5. Mediastinum is intact. Thomas Crawford MD FACR Cervical Spine CT 09/25/164 Signed Impressions: Service Date/Time: , September 25, 2016 18:28 - CONCLUSION: 1. Extensive degenerative changes in the cervical spine. 2. Fractures of the right first rib. Thomas Crawford MD FACR Abdomen/Pelvis CT 09/25/164 Signed Impressions: Service Date/Time: September 18:32 - CONCLUSION: Contusion anterior abdominal wall right upper quadrant. Thomas Crawford MD FACR Shoulder X-Ray 09/25/16 0000 Signed Impressions: Service Date/Time: September 19:05 - CONCLUSION: Fracture left clavivle Thomas Crawford MD FACR Pelvis X-Ray 09/25/16 0000 Signed Impressions: Service Date/Time: September 18:20 - CONCLUSION: Negative for fracture. Thomas Crawford MD FACR Narrative Exam GENERAL: 71-year-old well-nourished, well developed male sitting OOB in chair. SKIN: Warm and dry. HEAD:. Normocephalic. Scalp jazmin C/D/I. ENT: No nasal bleeding or discharge. Mucous membranes pink and moist. Right ear with Vaseline gauze in place, removed. Lac site healing well. NECK: Trachea midline. No JVD. CARDIOVASCULAR: Regular rate and rhythm. RESPIRATORY: No accessory muscle use. Lungs clear and diminished to auscultation. GASTROINTESTINAL: Abdomen soft, non-tender, nondistended. + BS. MUSCULOSKELETAL: Extremities without cyanosis, or edema. Left arm in sling. + pulses 4 extremities, MAEW. NEUROLOGICAL: Awake and alert. Normal speech. A/P Problem List: (1) Hypotension (2) Multiple rib fractures involving first rib (3) Nondisplaced fracture of lateral end of clavicle (4) Closed fracture of glenoid process of left scapula (5) Closed left clavicular fracture (6) Glenoid fracture of shoulder Assessment and Plan INJURIES: Scalp avulsion RIGHT ear laceration LEFT clavicle fx (non-op) LEFT rib fxs (2, 4, 5, 6, 8, 9, 10) RIGHT upper quadrant abdominal contusion 09/28: Debridement and rotational closure of scalp wound. Diet: Heart healthy, tolerating Pulm: IS, acapella, EZpap. Encourage patient use Pain: [place]. Morphine. Robaxin. Lidoderm patch Activity: OOB. PT and OT evaluating, recommending rehabilitation. (NWB [facility]IMINO) GI: Pepcid Bowel: Colace. MOM. Lactulose. LBM 10/01 DVT: SCD's. - Scalp avulsion Plastic surgery cleared patient for discharge. F/U as outpatient IV Ancef complete CINDY drain removed by plastics. 09/28: Debridement and partial closure of scalp wound Wound care per plastics: Dressing changes every other day. Apply povidone iodine ointment, Telfa or ABD pad, and dry wrap. - RIGHT ear laceration Sutured in ED Sutures removed, keep open to air - Left clavicle fracture Orthopedics cleared for discharge. Follow-up in 3 weeks. Nonoperative management Left upper extremity sling, NWB PT and OT evaluating- Recommend rehab placement - 7 Left rib fractures Pulmonary toileting 10/01 CT chest shows large hemothorax Reeducated patient and his son about the importance of pulmonary toilet and pain control. On room air, no distress Afebrile Encourage OOB Pain control LEFT hemothorax Ordered CT placement yesterday, Patient to get CT guided chest tube placed today. Will start Lovenox post CT placement Resume diet post CT placement Hgb 7.9 yesterday, 1 PRBC transfused. Today Hgb 8.4 Pulmonary toileting Plan of care discussed with patient and son at bedside. Case management consulted to assist with discharge planning. Patient has been accepted at [facility]. 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
[2016-10-02] MEDS: REMOVE OLD LIDOCAINE PATCH T-DERMAL SCH (14:00)
--- NOTE | 2016-10-02 15:32 | RADRPT ---
EXAM DATE/TIME: 10/02/2016 13:53 INDICATIONS : Left hemothorax. SEDATION TIME: 30 minutes MEDICATION(S): 1.) 2 mg midazolam (Versed) IV 2.) 100 mcg fentanyl (Sublimaze) IV DEVICE(S): 1.) 12 gauge Lorri FLUID: Total volume of 950 cc of red fluid was removed. Fluid was discarded. MEDICAL HISTORY : Hypertension. Recent trauma SURGICAL HISTORY : None. ENCOUNTER: Initial ACUITY: 1 day PAIN SCORE: 5/10 LOCATION: Left chest PROCEDURE: 1.) Conscious sedation with continuous EKG and oximetry monitoring. PROCEDURE : 1. CT guided chest tube placement. 2. Conscious sedation with continuous EKG and oximetry monitoring. The risks, benefits and alternatives to the procedure were explained and verbal and written consent w as obtained. The site was prepped in sterile fashion. Full sterile technique was used, including ca p, mask, sterile gloves and gown and a large sterile sheet. Hand hygiene and 2% chlorhexidine and/or betadine/alcohol prep was utilized per protocol for cutaneous antisepsis. The skin and subcutaneous tissues were infiltrated with local anesthetic solution. Using automated exposure control and adjus tment of the mA and/or kV according to patient size, radiation dose was kept as low as reasonably ach ievable to obtain optimal diagnostic quality images. With CT guidance a Myles needle was advanced into the left pleural fluid collection. Guidewire was placed. Images demonstrate appropriate location over the guidewire. Therefore, the tract was serially dilated and a 12 Czech nonlocking pigtail catheter was placed into the pleural space. Vacutainer wa s initially used and removed 950 cc of bloody fluid. Post procedure images demonstrate satisfactory p osition of the tube. The catheter was sutured in place and a sterile dressing was placed. No residual fluid remained at the end of the procedure Conscious sedation was performed with the prescribed dosages and duration as above. The patient edgar ated the procedure well and there were no complications. EKG and oximetry remained stable throughout the procedure. The patient was sent to post anesthesia recovery in stable condition. CONCLUSION: Uncomplicated left chest tube placement with removal of 950 cc of bloody fluid. Cesar Maria MD on October 02, 2016 at 15:28 Board Certified Radiologist. This report was verified electronically.
[2016-10-02] MEDS ORDERED: MIDAZOLAM HCL 5 MG/5 ML VIAL IV PUSH ONE (16:41)
[2016-10-02] MEDS ORDERED: fentaNYL CITRATE 250 MCG/5 ML AMP IV PUSH ONE (16:42)
[2016-10-02] MEDS: MAGNESIUM HYDROXIDE SUSP 30 ML CUP PO SCH (21:00)
[2016-10-02 21:11] LABS: MEAN CORPUSCULAR HGB CONC 36.4 % (32.0-36.0)
[2016-10-03] VITALS: BP 114/78; PULSE 82; RESP 18; TEMP 98.1; O2SAT 99
[2016-10-03 04:51] LABS: AUTOMATED NEUTROPHIL # 2.6 TH/MM3 (1.8-7.7); BASOPHIL % 0.7 % (0.0-2.0); EOSINOPHIL # 0.2 TH/MM3 (0-0.4); EOSINOPHIL % 4.5 % (0.0-4.0); HEMATOCRIT 26.2 % (39.0-51.0); LYMPHOCYTE # 0.8 TH/MM3 (1.0-4.8); MEAN CELL VOLUME 88.1 FL (80.0-100.0); MONO % 10.8 % (0.0-8.0); PLATELET COUNT 250 TH/MM3 (150-450); RED BLOOD COUNT 2.97 MIL/MM3 (4.50-5.90); RED CELL DISTRIBUTION WIDTH 13.9 % (11.6-17.2); WHITE BLOOD COUNT 4.1 TH/MM3 (4.0-11.0)
[2016-10-03 04:58] LABS: HEMO FLAGS AUTO DIFF
[2016-10-03 05:10] LABS: ALT (GPT) 21 U/L (12-78); ANION GAP 3 MEQ/L (5-15); AST (GOT) 33 U/L (15-37); BICARBONATE 30.9 MEQ/L (21.0-32.0); BLOOD UREA NITROGEN 14 MG/DL (7-18); CHLORIDE 106 MEQ/L (98-107); GLOMERULAR FILTRATION RATE 80 ML/MIN (>89); POTASSIUM 4.5 MEQ/L (3.5-5.1); SODIUM (NA) 140 MEQ/L (136-145)
[2016-10-03 05:12] LABS: ALKALINE PHOSPHATASE 47 U/L (45-117); TOTAL BILIRUBIN ADULT 1.5 MG/DL (0.2-1.0)
--- NOTE | 2016-10-03 07:40 | RADRPT ---
EXAM DATE/TIME: 10/03/2016 05:45 [facility] COMPARISON: CHEST SINGLE AP, October 01, 2016, 6:07. INDICATIONS : Short of breath, evaluate left hemothorax and chest tube MEDICAL HISTORY : Hypertension. clavicle fracture SURGICAL HISTORY : None. ENCOUNTER: Subsequent ACUITY: 1 week PAIN SCORE: 5/10 LOCATION: Left chest FINDINGS: Small caliber chest tube has been placed at the left lung base. Decreased pleural effusion. Decreased atelectasis of the left base, now minimal. Right lung remains clear. No pneumothorax. CONCLUSION: No significant left pleural fluid present after small caliber chest tube placement. No pneumothorax. Cesar Liang MD on October 03, 2016 at 7:38 Board Certified Radiologist. This report was verified electronically.
[2016-10-03 08:00] VITALS: BP 142/84; PULSE 65; RESP 17; TEMP 98; O2SAT 98
[2016-10-03 08:30] LABS: SCAN/DIFF AUTO DIFF CONFIRMED
[2016-10-03] MEDS: ACETAMINOPHEN/HYDROcodone 325 MG/5 MG TAB PO PRN ×2 (10:21→22:06)
[2016-10-03] MEDS: LACTULOSE SYRUP 20 GM/30 ML CUP PO SCH (10:21)
[2016-10-03] MEDS: METHOCARBAMOL 500 MG TAB PO SCH ×3 (10:21→23:36)
[2016-10-03] MEDS: DOCUSATE SODIUM 100 MG CAP PO SCH ×2 (10:22→22:00)
[2016-10-03] MEDS: LIDOCAINE HCL 5% PATCH T-DERMAL SCH (10:22)
[2016-10-03] MEDS: FAMOTIDINE 20 MG TAB PO SCH ×2 (10:22→22:00)
[2016-10-03 12:00] VITALS: BP 165/74; PULSE 65; RESP 18; TEMP 97.2; O2SAT 97
--- NOTE | 2016-10-03 13:01 | HHI.PR ---
Subjective Subjective Notes No complaints. Denies SOB S/P CT guided chest tube placement. CT drained 150ml overnight Objective Vitals/I&O Vital Signs Date Time Temp Pulse Resp B/P Pulse Ox O2 Delivery O2 Flow Rate FiO2 10/03/16 12:00 97.2 65 18 165/74 97 09/29/16 08:09 21 Labs Laboratory Tests Test 10/03/16 03:21 White Blood Count 4.1 Red Blood Count 2.97 Hemoglobin 9.5 Hematocrit 26.2 Mean Corpuscular Volume 88.1 Mean Corpuscular Hemoglobin 32.0 Mean Corpuscular Hemoglobin 36.4 Concent Red Cell Distribution Width 13.9 Platelet Count 250 Mean Platelet Volume 6.5 Neutrophils (%) (Auto) 64.0 Lymphocytes (%) (Auto) 20.0 Monocytes (%) (Auto) 10.8 Eosinophils (%) (Auto) 4.5 Basophils (%) (Auto) 0.7 Neutrophils # (Auto) 2.6 Lymphocytes # (Auto) 0.8 Monocytes # (Auto) 0.4 Eosinophils # (Auto) 0.2 Basophils # (Auto) 0.0 CBC Comment AUTO DIFF Differential Comment AUTO DIFF CONFIRMED Polychromasia 2.0 Sodium Level 140 Potassium Level 4.5 Chloride Level 106 Carbon Dioxide Level 30.9 Anion Gap 3 Blood Urea Nitrogen 14 Creatinine 0.93 Estimat Glomerular Filtration 80 Rate Random Glucose 89 Calcium Level 8.3 Total Bilirubin 1.5 Aspartate Amino Transf 33 (AST/SGOT) Alanine Aminotransferase 21 (ALT/SGPT) Alkaline Phosphatase 47 Total Protein 5.8 Albumin 2.7 Radiology Last Impressions Chest X-Ray 09/27/16 0600 Signed Impressions: Service Date/Time: Tuesday, September 27, 2016 06:00 - CONCLUSION: 1. Left basilar airspace disease slightly increased from September 25. Right central line in superior vena cava. Ayad Altman MD Maxillofacial CT 09/25/161823 Signed Impressions: Service Date/Time: September 18:29 - CONCLUSION: Negative CT scan of the facial bones for a facial bone fracture. Thomas Crawford MD FACR Head CT 09/25/161823 Signed Impressions: Service Date/Time: September 18:26 - CONCLUSION: Laceration left occiput otherwise negative. Thomas Crawford MD FACR Chest CT 09/25/164 Signed Impressions: Service Date/Time: September 18:34 - CONCLUSION: 1. Multiple rib fractures on the left. 2. Fracture of the left clavicle. 3. Fracture across the anterior lip of the glenoid. 4. Thoracic spine is intact. 5. Mediastinum is intact. Thomas Crawford MD FACR Cervical Spine CT 09/25/16 1824 Signed Impressions: Service Date/Time: September 18:28 - CONCLUSION: 1. Extensive degenerative changes in the cervical spine. 2. Fractures of the right first rib. Thomas Crawford MD FACR Abdomen/Pelvis CT 09/25/16 1824 Signed Impressions: Service Date/Time: September 18:32 - CONCLUSION: Contusion anterior abdominal wall right upper quadrant. Thomas Crawford MD FACR Shoulder X-Ray 09/25/16 0000 Signed Impressions: Service Date/Time: September 19:05 - CONCLUSION: Fracture left clavivle Thomas Crawford MD FACR Pelvis X-Ray 09/25/16 0000 Signed Impressions: Service Date/Time: September 18:20 - CONCLUSION: Negative for fracture. Thomas Crawford MD FACR Narrative Exam GENERAL: 71-year-old well-nourished, well developed male sitting up in bed. SKIN: Warm and dry. Ecchymosis noted on left chin and neck. HEAD:. Normocephalic. Scalp jazmin C/D/I. ENT: No nasal bleeding or discharge. Mucous membranes pink and moist. NECK: Trachea midline. No JVD. CARDIOVASCULAR: Regular rate and rhythm. RESPIRATORY: No accessory muscle use. Lungs clear and diminished to auscultation. LEFT lateral CT in place draining sanguinous drainage to pleura vac. No air leak noted. GASTROINTESTINAL: Abdomen soft, non-tender, nondistended. + BS. MUSCULOSKELETAL: Extremities without cyanosis, or edema. Left arm in sling. + pulses 4 extremities, MAEW. NEUROLOGICAL: Awake and alert. Normal speech. A/P Problem List: (1) Hypotension (2) Multiple rib fractures involving first rib (3) Nondisplaced fracture of lateral end of clavicle (4) Closed fracture of glenoid process of left scapula (5) Closed left clavicular fracture (6) Glenoid fracture of shoulder Assessment and Plan INJURIES: Scalp avulsion RIGHT ear laceration LEFT clavicle fx (non-op) LEFT rib fxs (2, 4, 5, 6, 8, 9, 10) RIGHT upper quadrant abdominal contusion 09/28: Debridement and rotational closure of scalp wound 10/[address] placement for hemothorax (950mL) Diet: Heart healthy, tolerating Pulm: IS, acapella, EZpap. Encourage patient use Pain: [place]. Morphine. Robaxin. Lidoderm patch Activity: OOB. PT and OT evaluating, recommending rehabilitation. (NWB MAXIMINO) GI: Pepcid Bowel: Colace. MOM. Lactulose. LBM 10/01 DVT: SCD's. - Scalp avulsion Plastic surgery cleared patient for discharge. F/U as outpatient IV Ancef complete Hgb stable CINDY drain removed by plastics. 09/28: Debridement and partial closure of scalp wound Wound care per plastics: Dressing changes every other day. Apply povidone iodine ointment, Telfa or ABD pad, and dry wrap. - RIGHT ear laceration Sutured in ED Sutures removed, keep open to air - Left clavicle fracture Orthopedics cleared for discharge. Follow-up in 3 weeks. Nonoperative management Left upper extremity sling, NWB PT and OT evaluating- Recommend rehab placement - 7 Left rib fractures Pulmonary toileting 10/01 CT chest shows large hemothorax On room air, no distress Afebrile Encourage OOB Pain control - LEFT hemothorax S/P LEFT CT guided CT placement. Initially drained 950mL. Drained 150mL overnight. CT placed to [facility]. Lovenox on hold CXR in AM Hgb stable at 9.5 today Pulmonary toileting Plan of care discussed with patient and RN at bedside. Case management consulted to assist with discharge planning. Patient has been accepted at [facility]. Plan to DC once CT removed, possibly Thursday or Thursday. Problem Qualifiers (1) Hypotension: Qualified Code: I95.9 - Hypotension, unspecified hypotension type (2) Closed left clavicular fracture: Qualified Code: S42.002A - Closed displaced fracture of left clavicle, unspecified part of clavicle, initial encounter (3) Glenoid fracture of shoulder: Qualified Code: S42.142A - Glenoid fracture of shoulder, left, closed, initial encounter Juan José Barahona October 03, 2016 13:01
[2016-10-03] MEDS: REMOVE OLD LIDOCAINE PATCH T-DERMAL SCH (14:00)
[2016-10-03 16:00] VITALS: BP 153/90; PULSE 73; RESP 19; TEMP 98.1; O2SAT 96
[2016-10-03 20:00] VITALS: BP 126/77; PULSE 88; RESP 18; TEMP 98.7; O2SAT 98
[2016-10-03] MEDS: POVIDONE IODINE 10% SOLN 118 ML BOTTLE TOP SCH (21:00)
[2016-10-03] MEDS: MAGNESIUM HYDROXIDE SUSP 30 ML CUP PO SCH (22:00)
[2016-10-03] MEDS: BACITRACIN TOP OINT 15 GM TUBE TOPICAL SCH (22:09)
[2016-10-04] VITALS: BP 120/74; PULSE 71; RESP 18; TEMP 97; O2SAT 95
[2016-10-04] MEDS: POVIDONE IODINE 10% OINT 30 GM TUBE TOPICAL SCH (07:38)
[2016-10-04 08:00] VITALS: BP 132/78; PULSE 71; RESP 17; TEMP 96.5; O2SAT 97
[2016-10-04] MEDS: LIDOCAINE HCL 5% PATCH T-DERMAL SCH (09:00)
[2016-10-04] MEDS: POVIDONE IODINE 10% SOLN 118 ML BOTTLE TOP SCH ×2 (09:00→20:35)
[2016-10-04] MEDS: BACITRACIN TOP OINT 15 GM TUBE TOPICAL SCH ×2 (09:00→20:35)
[2016-10-04] MEDS: FAMOTIDINE 20 MG TAB PO SCH ×2 (09:09→20:35)
[2016-10-04] MEDS: METHOCARBAMOL 500 MG TAB PO SCH ×3 (09:09→23:22)
[2016-10-04] MEDS: LACTULOSE SYRUP 20 GM/30 ML CUP PO SCH (09:09)
[2016-10-04] MEDS: DOCUSATE SODIUM 100 MG CAP PO SCH ×2 (09:09→20:35)
[2016-10-04] MEDS: ACETAMINOPHEN/HYDROcodone 325 MG/5 MG TAB PO PRN ×2 (09:10→16:29)
[2016-10-04 12:00] VITALS: BP 132/78; PULSE 68; RESP 18; TEMP 97.1; O2SAT 98
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
[2016-10-04] MEDS: REMOVE OLD LIDOCAINE PATCH T-DERMAL SCH (14:00)
[2016-10-04 16:00] VITALS: BP 141/81; PULSE 70; RESP 20; TEMP 97.4; O2SAT 99
[2016-10-04 20:00] VITALS: BP 115/73; PULSE 71; RESP 18; TEMP 97.7; O2SAT 97
[2016-10-04] MEDS: MAGNESIUM HYDROXIDE SUSP 30 ML CUP PO SCH (20:35)
[2016-10-05 00:21] VITALS: BP 117/75; PULSE 63; RESP 18; TEMP 98.7; O2SAT 97
--- NOTE | 2016-10-05 06:22 | RADRPT ---
EXAM DATE/TIME: 10/05/2016 05:24 [facility] COMPARISON: CHEST SINGLE AP, October 03, 2016, 5:45. INDICATIONS : Evaluate left side chest tube. MEDICAL HISTORY : Hypertension. SURGICAL HISTORY : None. ENCOUNTER: Subsequent ACUITY: 1 week PAIN SCORE: 7/10 LOCATION: Bilateral chest FINDINGS: Small caliber left chest tube present. No significant pneumothorax. Nondisplaced distal left clavicle fracture. Multiple left rib fractures. Minimal basilar atelectasis. CONCLUSION: 1. Left chest tube without pneumothorax. Minimal basilar atelectasis. Ayad Altman MD on October 05, 2016 at 6:19 Board Certified Radiologist. This report was verified electronically.
[2016-10-05 08:00] VITALS: BP 138/95; PULSE 69; RESP 15; TEMP 96.9; O2SAT 97
[2016-10-05] MEDS: DOCUSATE SODIUM 100 MG CAP PO SCH ×2 (08:13→20:03)
[2016-10-05] MEDS: METHOCARBAMOL 500 MG TAB PO SCH ×3 (08:13→23:29)
[2016-10-05] MEDS: ACETAMINOPHEN/HYDROcodone 325 MG/5 MG TAB PO PRN ×3 (08:13→21:17)
[2016-10-05] MEDS: FAMOTIDINE 20 MG TAB PO SCH ×2 (08:14→20:03)
[2016-10-05] MEDS: LACTULOSE SYRUP 20 GM/30 ML CUP PO SCH (08:14)
[2016-10-05] MEDS: LIDOCAINE HCL 5% PATCH T-DERMAL SCH (08:15)
[2016-10-05] MEDS: BACITRACIN TOP OINT 15 GM TUBE TOPICAL SCH ×2 (08:19→20:03)
[2016-10-05] MEDS: REMOVE OLD LIDOCAINE PATCH T-DERMAL SCH (08:19)
[2016-10-05] MEDS: POVIDONE IODINE 10% SOLN 118 ML BOTTLE TOP SCH ×2 (08:30→18:52)
[2016-10-05] MEDS: POVIDONE IODINE 10% OINT 30 GM TUBE TOPICAL SCH (08:30)
[2016-10-05 12:00] VITALS: BP 127/75; PULSE 69; RESP 16; TEMP 96.4; O2SAT 98
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
--- NOTE | 2016-10-05 14:48 | HHI.FF ---
Face to Face Verification Diagnosis: (1) Nondisplaced fracture of lateral end of clavicle (2) Closed fracture of glenoid process of left scapula (3) Hypotension (4) Closed left clavicular fracture (5) Glenoid fracture of shoulder (6) Scalp avulsion (7) Multiple rib fractures involving first rib Occupational Therapy Order: Evaluate and Treat, Improve ADL, Gross motor coordination, Fine motor coordination Home Health Nursing Order: Medical education Signs/symptoms of disease process Medication education-adverse effect Nursing assessment with vital signs I have seen patient Marco A Watson on 10/05/16. My clinical findings support the need for the requested home health care services because: Ltd mobility - disease progression Deconditioned w/ increased weakness Limited ability to care for self High risk of falls I certify that my clinical findings support that this patient is homebound because: Post-op weakness Unsteady gait/balance Unsafe to leave home unassisted Benita Cloud October 05, 2016 14:48
[2016-10-05 16:00] VITALS: BP 128/81; PULSE 71; RESP 17; TEMP 96.3; O2SAT 99
[2016-10-05 20:00] VITALS: BP 138/88; PULSE 73; RESP 18; TEMP 96.7; O2SAT 96
[2016-10-05] MEDS: MAGNESIUM HYDROXIDE SUSP 30 ML CUP PO SCH (20:03)
[2016-10-05] MEDS: ENOXAPARIN SODIUM 30 MG/0.3 ML SYRINGE SQ SCH ×2 (23:15→23:29)
[2016-10-06] VITALS: BP 125/77; PULSE 79; RESP 18; TEMP 96.9; O2SAT 97
--- NOTE | 2016-10-06 06:35 | RADRPT ---
EXAM DATE/TIME: 10/06/2016 04:39 [place] COMPARISON: CHEST SINGLE AP, October 05, 2016, 5:24. INDICATIONS : Post chest tube removal. MEDICAL HISTORY : Hypertension. SURGICAL HISTORY : None. ENCOUNTER: Subsequent ACUITY: 1 day PAIN SCORE: 0/10 LOCATION: Bilateral chest FINDINGS: Left thoracostomy tube is been removed. There is no evidence of pneumothorax. Mild parenchymal opacit y and effusion is again noted at the left base. Right lung remains clear. Posterior left rib fracture s and clavicle fracture are again seen. Cardiac contours are grossly stable. CONCLUSION: Left chest tube removed without complication. Cesar Ortiz MD on October 06, 2016 at 6:33 Board Certified Radiologist. This report was verified electronically.
[2016-10-06 08:00] VITALS: BP 127/78; PULSE 60; RESP 16; TEMP 95.7; O2SAT 98
[2016-10-06] MEDS: LACTULOSE SYRUP 20 GM/30 ML CUP PO SCH (08:00)
[2016-10-06] MEDS: DOCUSATE SODIUM 100 MG CAP PO SCH (08:00)
[2016-10-06] MEDS: REMOVE OLD LIDOCAINE PATCH T-DERMAL SCH (08:00)
[2016-10-06] MEDS: FAMOTIDINE 20 MG TAB PO SCH (08:00)
[2016-10-06] MEDS: LIDOCAINE HCL 5% PATCH T-DERMAL SCH (08:00)
[2016-10-06] MEDS: METHOCARBAMOL 500 MG TAB PO SCH (08:00)
[2016-10-06] MEDS: BACITRACIN TOP OINT 15 GM TUBE TOPICAL SCH (08:05)
[2016-10-06] MEDS: POVIDONE IODINE 10% OINT 30 GM TUBE TOPICAL SCH (08:05)
[2016-10-06] MEDS: POVIDONE IODINE 10% SOLN 118 ML BOTTLE TOP SCH (08:05)
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
[2016-10-06] MEDS ORDERED: NORC5TAB PO (10:36)
[2016-10-06] MEDS: ENOXAPARIN SODIUM 30 MG/0.3 ML SYRINGE SQ SCH (11:15)
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
[2016-10-06 12:00] VITALS: BP 138/84; PULSE 72; RESP 18; TEMP 96.9; O2SAT 95
== END 2016-10-06 12:32 | disposition home health service (06) | DRG 576 ==
LOC: NEPI 18:06 → NEDA 20:10 → EDBD 20:10 → N03A 23:27 → N07A 09-26 16:40
PROVIDERS: ADMIT Surgery; ATTEND Surgery
PROC: 09Q0XZZ Repair Right External Ear, External Approach (ICD-10-PCS; 2016-09-25)
PROC: 30233N1 Transfusion of Nonautologous Red Blood Cells into Peripheral Vein, Percutaneous Approach (ICD-10-PCS; 2016-09-25)
PROC: 05HM33Z Insertion of Infusion Device into Right Internal Jugular Vein, Percutaneous Approach (ICD-10-PCS; 2016-09-25)
PROC: 0KB00ZZ Excision of Head Muscle, Open Approach (ICD-10-PCS; 2016-09-28)
PROC: 0HQ0XZZ Repair Scalp Skin, External Approach (ICD-10-PCS; 2016-09-28)
PROC: 0HX0XZZ Transfer Scalp Skin, External Approach (ICD-10-PCS; principal; 2016-09-28 07:43)
PROC: 0W9B30Z Drainage of Left Pleural Cavity with Drainage Device, Percutaneous Approach (ICD-10-PCS; 2016-10-02)
DX: S01.01XA Laceration without foreign body of scalp, initial encounter (principal); S27.1XXA Traumatic hemothorax, initial encounter; I95.9 Hypotension, unspecified; S27.329A Contusion of lung, unspecified, initial encounter; S22.42XA Multiple fractures of ribs, left side, initial encounter for closed fracture; E86.0 Dehydration; S01.311A Laceration without foreign body of right ear, initial encounter; S42.035A Nondisplaced fracture of lateral end of left clavicle, initial encounter for closed fracture; S42.142A Displaced fracture of glenoid cavity of scapula, left shoulder, initial encounter for closed fracture; V48.9XXA Unspecified car occupant injured in noncollision transport accident in traffic accident, initial encounter; Y93.89 Activity, other specified; Y92.410 Unspecified street and highway as the place of occurrence of the external cause; Y99.9 Unspecified external cause status; S40.212A Abrasion of left shoulder, initial encounter; I10 Essential (primary) hypertension; N40.0 Benign prostatic hyperplasia without lower urinary tract symptoms; S01.312A Laceration without foreign body of left ear, initial encounter; S30.1XXA Contusion of abdominal wall, initial encounter
CPT/HCPCS: 32557; 36430; 36555; 70450; 70486; 71010; 71250; 71260; 72125; 72170; 73030; 74177; 76937; 80048; 80053; 82435; 82550; 82552; 82565; 82947; 83735; 84132; 84295; 84484; 84520; 85025; 85610; 85730; 86850; 86900; 86901; 86920; 87641; 90471; 93005; 94150; 94640; 94667; 94668; 96374; 99291; C1729; C1769; C9113; G0390; J0690; J1650; J2250; J2270; J2310; J2370; J2405; J3010; J7030; J7050; J7120; P9016; Q9967